=== PATIENT | female | born 1935 | race Caucasian/White ===

== ENCOUNTER → 2018-06-10 | Outpatient (CLI) | payer MEDICARE, OTHER | LOC: M RAD 08:50 | DX: Z01.818 Encounter for other preprocedural examination (principal); N18.6 End stage renal disease; I87.2 Venous insufficiency (chronic) (peripheral); I83.813 Varicose veins of bilateral lower extremities with pain | CPT/HCPCS: 93970 ==

== ENCOUNTER 2018-09-16 11:08 | Day surgery (SDC) | payer MEDICARE, OTHER ==
[~2018-09-16 11:08] MED LIST: LIDOCAINE 1% MDV 20ML VIAL SQ; MIDAZOLAM INJ 2 MG/2 ML VIAL (J2250) As Ordered; fentaNYL 100 MCG/2 ML INJECTION (J3010) As Ordered
[2018-09-16] MEDS ORDERED: PROPOFOL 200 MG/20 ML VIAL As Ordered ×2 (11:15→15:34)
[2018-09-16 11:57] LABS: PROTHROMBIN TIME 17.4 SECONDS (12.1-14.4)
[2018-09-16] MEDS ORDERED: LR 1,000 ML IV (13:00)
[2018-09-16] MEDS: LIDOCAINE 1% SDV INJ 30 ML VIAL As Ordered (14:47)
[2018-09-16] MEDS: LIDOCAINE W/EPINEPHRINE 1% 20ML VIAL As Ordered ×2 (14:50→15:30)
== END 2018-09-16 16:55 | disposition home or self-care (01) ==
LOC: M SDC 11:08
DX: I87.2 Venous insufficiency (chronic) (peripheral) (principal); I83.812 Varicose veins of left lower extremity with pain; I10 Essential (primary) hypertension; I48.91 Unspecified atrial fibrillation; E03.9 Hypothyroidism, unspecified; I50.9 Heart failure, unspecified; N18.9 Chronic kidney disease, unspecified; R06.02 Shortness of breath; M12.9 Arthropathy, unspecified; M62.81 Muscle weakness (generalized); G47.30 Sleep apnea, unspecified; Z68.39 Body mass index [BMI] 39.0-39.9, adult; Z88.0 Allergy status to penicillin; Z88.8 Allergy status to other drugs, medicaments and biological substances; Z79.899 Other long term (current) drug therapy; Z79.01 Long term (current) use of anticoagulants; Z79.82 Long term (current) use of aspirin; Z95.810 Presence of automatic (implantable) cardiac defibrillator; Z95.0 Presence of cardiac pacemaker; Z87.891 Personal history of nicotine dependence; Z98.51 Tubal ligation status
CPT/HCPCS: 36475

== ENCOUNTER → 2018-09-23 | Outpatient (CLI) | payer MEDICARE, OTHER | LOC: M RAD 11:38 | DX: I87.2 Venous insufficiency (chronic) (peripheral) (principal); I82.812 Embolism and thrombosis of superficial veins of left lower extremity | CPT/HCPCS: 93971 ==

== ENCOUNTER 2018-10-12 10:07 | Day surgery (SDC) | payer MEDICARE, OTHER ==
[~2018-10-12 10:07] MED LIST changes: -MIDAZOLAM INJ 2 MG/2 ML VIAL (J2250) As Ordered; -fentaNYL 100 MCG/2 ML INJECTION (J3010) As Ordered
[2018-10-12 10:51] LABS: INR 2.18; PROTHROMBIN TIME 24.7 SECONDS (12.1-14.4)
[2018-10-12] MEDS: LR 1,000 ML IV (11:23)
[2018-10-12] MEDS ORDERED: MIDAZOLAM INJ 2 MG/2 ML VIAL (J2250) As Ordered (14:00)
[2018-10-12] MEDS ORDERED: KETAMINE HCL 200 MG/20 ML VIAL As Ordered (14:00)
[2018-10-12] MEDS ORDERED: PROPOFOL 200 MG/20 ML VIAL As Ordered ×2 (14:00→14:13)
[2018-10-12] MEDS: LIDOCAINE W/EPINEPHRINE 1% 20ML VIAL As Ordered (14:31)
== END 2018-10-12 16:26 | disposition home or self-care (01) ==
LOC: M SDC 10:07
DX: I83.813 Varicose veins of bilateral lower extremities with pain (principal); I87.2 Venous insufficiency (chronic) (peripheral)
CPT/HCPCS: 36475

== ENCOUNTER → 2018-10-18 | Outpatient (CLI) | payer MEDICARE, OTHER | LOC: M RAD 11:17 | DX: I87.2 Venous insufficiency (chronic) (peripheral) (principal); I83.813 Varicose veins of bilateral lower extremities with pain | CPT/HCPCS: 93971 ==

== ENCOUNTER → 2019-04-01 | Outpatient (CLI) | payer MEDICARE, OTHER ==
[~2019-04-01] MED LIST changes: +ACET500T15 PO; +ASPI81TA26 PO; +CALC1TAB63 PO; +CINN500T PO; +FISH1200 PO; +GARL10005 PO; +HYDR-3910 PO; +IRBE150T12 PO; +IRON27TA2 PO; +LEVO200T4 PO; -LIDOCAINE 1% MDV 20ML VIAL SQ; +MAGN250T7 PO; +MELA5TAB17 PO; +METO25TA PO; +METO50TA7 PO; +OMEG100011 PO; +PANT40TA3 PO; +POTA10TA16 PO; +RESV1CAP2 PO; +TORS20TA2 PO; +TURM500T PO; +ULOR80TA PO; +VITA-112 PO; +VITA400C7 PO; +WARF-58 PO
--- NOTE | 2019-04-01 14:24 | REP ---
BILATERAL LOWER EXTREMITY DUPLEX DOPPLER VENOUS ULTRASOUND WITH EVALUATION FOR VENOUS REFLUX: Real-time compression and duplex Doppler interrogation of bilateral lower extremity deep venous systems is performed. Bilaterally the common femoral, superficial femoral, and popliteal veins are fully compressibly with transducer pressure and demonstrate normal spontaneous and phasic flow without evidence of deep venous thrombosis. The patient has had prior greater saphenous vein ablation and there is thrombus seen in both greater saphenous veins as expected. Evaluation for venous reflux is performed. Reflux is noted in the right common femoral vein, mid right superficial femoral vein, but in no other portion of superficial femoral vein or popliteal vein. There is no reflux in the lesser saphenous vein which measures 2 mm. The thrombosed greater saphenous vein measures 2 mm proximally at the saphenofemoral junction, 4 mm at the thigh and 3 mm at the knee. Anterior accessory greater saphenous vein is present demonstrating reflux. This traverses down the lateral thigh perforating vein causes reflux at the mid superficial femoral vein. On the left there is reflux in a duplicated mid superficial femoral vein. No reflux is seen in the common femoral vein or popliteal vein and there is no reflux in the less saphenous vein which measures 3 mm. The thrombosed greater saphenous vein measures 4 mm at the saphenofemoral junction, 3 mm at the mid thigh and knee. There is no evidence of an anterior accessory greater saphenous vein. Multiple collateral venous structures are seen in the proximal calf communicating at the greater saphenous vein, which are partially thrombosed. Electronically Signed by Abdon Crenshaw MD 04/06/2019 11:42 A
== END ==
LOC: M RAD 08:34
PROVIDERS: ATTEND Surgery Vascular Surgery
DX: I87.2 Venous insufficiency (chronic) (peripheral) (principal); I82.412 Acute embolism and thrombosis of left femoral vein